=== PATIENT | female | born 1965 | race Caucasian/White ===

== ENCOUNTER → 2016-05-06 | Outpatient (CLI) | payer BC ==
--- NOTE | 2016-05-08 14:01 | MG ---
HISTORY: SCREENING Comparison: May 04, 2015 FINDINGS: Bilateral CC and MLO projections of the right and left breast were obtained. Scattered fibroglandul ar tissue is seen to be present. No significant architectural distortion, mass or clustered microca lcifications can be observed to suggest malignancy. No skin thickening or nipple retraction is appr eciated. No pathological lymphadenopathy can be identified. Benign-appearing calcifications scatte red throughout the right and left breasts are observed. IMPRESSION: NO RADIOGRAPHIC EVIDENCE OF MALIGNANCY. ACR CATEGORY: 2 - benign findings. FOLLOW-UP EXAM 1 YEAR. Diagnostic CAD was utilized and reviewed. * 0 (ZERO) - ASSESSMENT INCOMPLETE; ADDITIONAL IMAGING IS NEEDED. * 1/ (ONE) - NEGATIVE. * 2/II (TWO) - BENIGN FINDINGS. * 3/III (THREE) - PROBABLY BENIGN FINDING; SHORT INTERVAL FOLLOW-UP SUGGESTED. * 4/IV (FOUR) - SUSPICIOUS ABNORMALITY; BIOPSY SHOULD BE CONSIDERED. * 5/V - HIGHLY SUSPICIOUS OF MALIGNANCY; BIOPSY SHOULD BE PERFORMED. A NEGATIVE X-RAY REPORT SHOULD NOT DELAY BIOPSY IF A DOMINANT OR CLINICALLY SUSPICIOUS MASS IS PRESENT; 4 TO 8 PERCENT OF CANCERS ARE NOT IDENTIFIED BY X-RAY. A NEG ATIVE REPORT MAY REINFORCE THE CLINICAL IMPRESSION. ADENOSIS AND DENSE BREASTS MAY OBSCURE AN UNDER LYING NEOPLASM. Reported By:
== END ==
LOC: RAD 08:12
PROVIDERS: ATTEND Obstetrics & Gynecology
DX: Z12.31 Encounter for screening mammogram for malignant neoplasm of breast (principal)
CPT/HCPCS: 77067

== ENCOUNTER → 2017-01-08 | Outpatient (CLI) | payer BC ==
--- NOTE | 2017-01-08 15:42 | RAD ---
Examination: Cervical spine, AP and lateral views History: Neck pain Findings: There is surgical screw-plate fixation with interbody spacers at C4-C5-6. Alignment is norm al. There is no evidence for fracture, hardware abnormality or bone infection. The prevertebral soft tissues are unremarkable. The upper cervical segments and odontoid appear normal. Impression: Status post ACDF C4-C6. Reported By:
== END ==
LOC: RAD 13:44
PROVIDERS: ATTEND Internal Medicine
DX: M54.2 Cervicalgia (principal); Z98.1 Arthrodesis status
CPT/HCPCS: 72040

== ENCOUNTER → 2017-05-29 | Outpatient (CLI) | payer BC ==
--- NOTE | 2017-05-29 11:39 | MG ---
HISTORY: SCREENING Comparison: Previous mammogram dated 05/06/2016 FINDINGS: Bilateral CC and MLO projections of the right and left breast were obtained. Scattered fibroglandula r tissue is seen to be present. No significant architectural distortion, mass or clustered microcalc ifications can be observed to suggest malignancy. No skin thickening or nipple retraction is appreci ated. No pathological lymphadenopathy can be identified. Benign-appearing calcifications scattered throughout the right and left breasts are observed. IMPRESSION: NO RADIOGRAPHIC EVIDENCE OF MALIGNANCY. ACR CATEGORY: 2 - benign findings. FOLLOW-UP EXAM 1 YEAR. Reported By:
== END ==
LOC: RAD 08:00
PROVIDERS: ATTEND Nurse Practitioner Women's Health
DX: Z12.31 Encounter for screening mammogram for malignant neoplasm of breast (principal)
CPT/HCPCS: 77067